=== PATIENT | male | born 1960 | race Asian ===

== ENCOUNTER 2017-05-28 20:50 | Emergency (ER) | payer MEDICAID, OTHER ==
[~2017-05-28] VITALS: Ht 175.3 cm; Wt 70.3 kg
[~2017-05-28 20:50] MED LIST: MECLIZINE HCL25 MG ORAL; NKM; ZOFRAN ODT4 MG ORAL
[2017-05-28] MEDS ORDERED: Norco 5mg/325mg tab ORAL ONE (22:00)
[2017-05-28] MEDS ORDERED: Norco 5mg/325mg tab ONE (22:00)
[2017-05-28] MEDS ORDERED: CORTISPORIN EAR10 ML LEFT EAR (22:10)
[2017-05-28] MEDS ORDERED: HYDROCODON-ACE1 EA15 ORAL (22:10)
--- NOTE | 2017-05-28 22:11 | Emergency Room Report ---
History of Present Illness General Chief Complaint: Earache Source: Patient Present Illness HPI Is a 57 year-old Bengali male with a history of wearing hearing aid. He presents with chief complaint of left ear pain. His been ongoing for last 3 days. Worse tonight. Now with fluid coming out from the ear. No trauma. No fever or chills. Pain is 10 out of 10. No recent swimming. Allergies: Coded Allergies: No Known Allergies (Unverified , 05/28/17) Patient History Past Medical History: see triage record, old chart reviewed Past Surgical History: other Pertinent Family History: none Social History: Denies: smoking Immunizations: other Reviewed Nursing Documentation: PMH: Agreed, PSxH: Agreed Nursing Documentation-PMH Past Medical History: No Stated History Review of Systems Eye: Denies: blurred vision, eye pain ENT: Reports: ear discharge, ear pain, Denies: nose congestion, throat swelling Respiratory: Denies: cough, shortness of breath Cardiovascular: Denies: chest pain, palpitations Gastrointestinal: Denies: abdominal pain, diarrhea, nausea, vomiting Musculoskeletal: Denies: back pain, joint pain Skin: Denies: rash Neurological: Denies: headache, numbness Endocrine: Denies: increased thirst, increased urine Hematologic/Lymphatic: Denies: easy bruising All Other Systems: negative except mentioned in HPI Physical Exam Vital Signs Date Time Temp Pulse Resp B/P Pulse Ox O2 Delivery O2 Flow Rate FiO2 05/28/17 21:28 98.4 90 16 165/89 96 vitals normal Sp02 EP Interpretation: reviewed, normal General Appearance: well appearing, no apparent distress, alert Head: normocephalic, atraumatic Eyes: bilateral eye EOMI, bilateral eye PERRL ENT: normal pharynx, other - left ear canal with edema. unable to see TM. Tender with movement of pinna. no mastoid tenderness. pt with hearing aid in right ear. Neck: full range of motion, supple, no meningismus Respiratory: chest non-tender, lungs clear, normal breath sounds Cardiovascular #1: regular rate, rhythm, no murmur Gastrointestinal: normal bowel sounds, non tender, no mass, no organomegaly, no bruit, non-distended Musculoskeletal: back normal, gait/station normal, normal range of motion Psychiatric: mood/affect normal Skin: warm/dry Procedures Additional Procedure Procedure Narrative procedure: Ear wick insertion Indication: Severe otitis externa Description: I placed a small ear wick inpatient left ear. Afterward but in some numbing medication drop. She tolerated procedure without a problem. Medical Decision Making Diagnostic Impression: Primary Impression: Left otitis externa Qualified Codes: H60.312 - Diffuse otitis externa, left ear ER Course Patient presents with otitis externa. No evidence of mastoiditis. No evidence of meningitis. We'll discharge home with antibiotics drops. Last Vital Signs Date Time Temp Pulse Resp B/P Pulse Ox O2 Delivery O2 Flow Rate FiO2 05/28/17 21:28 98.4 90 16 165/89 96 Status: improved Disposition: HOME, SELF-CARE Condition: Stable Scripts Neomycin/Polymyxin B Sulf/Hc* (CORTISPORIN EAR SOLUTION*) 10 Ml Solution 4 DROP LEFT EAR QID, #10 ML 0 Refills Prov: MARY ANN VILLAGOMEZ M.D. 05/28/17 Hydrocodone/Acetaminophen 5-325* (HYDROCODONE/ACETAMINOPHEN 5-325*) 1 Each Tablet 1 TAB ORAL Q6H Y for For Pain, #20 TAB 0 Refills Prov: MARY ANN VILLAGOMEZ M.D. 05/28/17 Patient Instructions: Otitis Externa, [id number] Additional Instructions: Followup with your Dr. in 2 days recheck. Return if worse. MARY ANN VILLAGOMEZ M.D. May 28, 2017 22:11
[2017-05-28 22:15] VITALS: BP 165/89
== END 2017-05-28 22:15 | disposition home or self-care (01) ==
LOC: EMR 21:55
DX: H60.92 Unspecified otitis externa, left ear (principal)
CPT/HCPCS: 99284

== ENCOUNTER 2019-07-05 00:52 | Emergency (ER) | payer MEDICAID ==
[~2019-07-05] VITALS: Ht 170.2 cm; Wt 72.1 kg
[~2019-07-05 00:52] MED LIST changes: +CORTISPORIN EAR10 ML LEFT EAR; +HYDROCODON-ACE1 EA15 ORAL
--- NOTE | 2019-07-05 00:59 | NUR ---
ED Nurse Note: PT WALKED IN C/O RECTAL PAIN FROM HEMORROIDS SINCE SATURDAY AFTERNOON. DENIES BLEEDING.
--- NOTE | 2019-07-05 01:00 | NUR ---
ER DISCHARGE NOTE: Patient is cleared to be discharged per ERMD, pt is aox4, on room air, with stable vital signs. pt was given dc and prescription instructions, pt was able to verbalize understanding, pt id band removed. pt is able to ambulate with steady gait. pt took all belongings.
[2019-07-05 01:04] VITALS: BP 169/95
[2019-07-05] MEDS ORDERED: ANUSOL-HC25 MG RECTAL (01:05)
--- NOTE | 2019-07-05 03:56 | Emergency Room Report ---
History of Present Illness General Chief Complaint: Pain Source: Patient Present Illness HPI 59-year-old male presents ED for evaluation. Son at bedside states that patient is been having rectal pain since . Pain is throbbing, 7 out of 10, nonradiating. Notes pain with defecation. Denies any rectal bleeding. States he has had hemorrhoids in the past and feels similar. Denies any abdominal pain nausea or vomiting. Denies fevers or chills. No other aggravating relieving factors. Denies any other associated symptoms Allergies: Coded Allergies: No Known Allergies (Unverified , 05/28/17) Patient History Past Medical History: DM, HTN Past Surgical History: none Pertinent Family History: none Social History: Denies: smoking, alcohol use, drug use Immunizations: UTD Reviewed Nursing Documentation: PMH: Agreed; PSxH: Agreed Nursing Documentation-PMH Past Medical History: No Stated History Hx Hypertension: Yes Hx Diabetes: Yes Review of Systems All Other Systems: negative except mentioned in HPI Physical Exam Vital Signs Date Time Temp Pulse Resp B/P (MAP) Pulse Ox O2 Delivery O2 Flow Rate FiO2 07/05/19 00:56 98.1 80 18 169/95 (119) 98 Room Air Sp02 EP Interpretation: reviewed, normal General Appearance: no apparent distress, alert, GCS 15, non-toxic Head: normocephalic Eyes: bilateral eye normal inspection, bilateral eye PERRL ENT: normal ENT inspection Neck: normal inspection Respiratory: normal inspection Cardiovascular #1: normal inspection Gastrointestinal: normal inspection Rectal: hemorrhoids, tenderness Genitourinary: no CVA tenderness Musculoskeletal: normal inspection Neurologic: alert, oriented x3, responsive, motor strength/tone normal, sensory intact, speech normal Psychiatric: normal inspection Skin: no rash Lymphatic: normal inspection Medical Decision Making Diagnostic Impression: Primary Impression: Hemorrhoids Qualified Codes: K64.9 - Unspecified hemorrhoids ER Course Hospital Course 59-year-old male presenting to ED complaining of rectal pain Differential diagnoses include: internal hemorrhoids, external hemorrhoids, anal fissure, constipation Clinical course Patient placed on stretcher in ED. After initial history physical exam reveals a middle aged male in no acute distress. Upon rectal exam there is fullness on rectal exam with tenderness consistent with an internal hemorrhoid. no gross blood noted Discussed findings with patient and son. Will discharge to home with Anusol suppository. Safe for discharge with close outpatient follow-up. States he has a PMD Diagnosis - hemorrhoids Stable and discharged to home with prescription for Anusol suppository. Patient instructed to followup with PMD. Patient instructed to return to ED if symptoms recur or worsen Last Vital Signs Date Time Temp Pulse Resp B/P (MAP) Pulse Ox O2 Delivery O2 Flow Rate FiO2 07/05/19 01:04 98.1 80 18 169/95 98 Room Air Status: improved Disposition: HOME, SELF-CARE Condition: Stable Scripts Hydrocortisone Acetate* (ANUSOL-HC*) 25 Mg Supp.rect 1 SUPP RECTAL TWICE A DAY, #10 SUPP Prov: Kieran Lux MD 07/05/19 Referrals: [facility],REFERR[facility] (PCP) Patient Instructions: Hemorrhoids, [id number] Kieran Lux MD Jul 05, 2019 03:56
== END 2019-07-05 01:05 | disposition home or self-care (01) ==
LOC: EMR 01:00
DX: K64.9 Unspecified hemorrhoids (principal); E11.9 Type 2 diabetes mellitus without complications; I10 Essential (primary) hypertension
CPT/HCPCS: 99282